=== PATIENT | male | born 1970 | race Caucasian/White ===

== ENCOUNTER 2018-06-01 19:19 | Inpatient (IN) | payer BC ==
[~2018-06-01] VITALS: Ht 183 cm; Wt 102.1 kg
--- NOTE | ~2018-06-01 | EKG ---
[place], [place] ELECTROCARDIOGRAM REPORT NAME: GARRY AIKEN UNIT #: [id number] ROOM: 426 DOCTOR: MOON DRAFT REPORT BIRTHDATE: [birth year] [facility] Test Date: 2018-06-02 Test Time: 01:16:35 Pat Name: GARRY AIKEN Department: Room: 426 Gender: M Public Works Supervisor: Nery Hussein : 1970 Requested By: MOUNA BROOKS Order Number: [id number] Reading MD: Navid Rocha MD Measurements Intervals [place] Rate: 48 P: 41 VA: 159 QRS: 80 QRSD: 100 T: 31 QT: 473 QTc: 423 Interpretive Statements Sinus bradycardia Compared to 06/01/18 No significant change Electronically Signed On 06-03-2018 19:28:16 PST by Navid Rocha MD CM:EKGRPT:ELECTROCARDIOGRAM REPORT [id number] MOUNA DE LEON DRAFT REPORT MOUNA BROOKS DO
--- NOTE | ~2018-06-01 | EKG ---
[place], [place] ELECTROCARDIOGRAM REPORT NAME: GARRY AIKEN UNIT #: [id number] ROOM: 426 DOCTOR: MOON DRAFT REPORT BIRTHDATE: [birth year] [facility] Test Date: 2018-06-01 Test Time: 19:22:11 Pat Name: GARRY AIKEN Department: Room: 426 Gender: M Numerical Control Router Operator: Nery Hussein : 1970 Requested By: MOUNA BROOKS Order Number: [id number] Reading MD: Navid Rocha MD Measurements Intervals [place] [facility] Rate: 80 P: 36 [place]: 202 QRS: 91 QRSD: 91 T: 8 QT: 376 QTc: 434 Interpretive Statements Sinus rhythm Borderline right axis deviation Electronically Signed On 06-03-2018 19:22:38 PST by Navid Rocha MD CM:EKGRPT:ELECTROCARDIOGRAM REPORT 21 21 MOUNA DE LEON DRAFT REPORT MOUNA BROOKS DO
--- NOTE | ~2018-06-01 | EKG ---
[place], [place] ELECTROCARDIOGRAM REPORT NAME: GARRY AIKEN UNIT #: [id number] ROOM: 426 DOCTOR: MOON DRAFT REPORT BIRTHDATE: [birth year] [facility] Test Date: 2018-06-01 Test Time: 22:33:54 Pat Name: GARRY AIKEN Department: Room: 426 Gender: M Director Trial: Chan Hernández : 1970 Requested By: MOUNA BROOKS Order Number: [id number] Reading MD: Navid Rocha MD Measurements Intervals [place] Rate: 55 P: 63 LA: 167 QRS: 87 QRSD: 102 T: 44 QT: 438 QTc: 419 Interpretive Statements Sinus rhythm ST elev, probable normal early repol pattern Compared to earlier ECG this date Inferior T-wave inversion and inferior ST elevation no longer present Electronically Signed On 06-03-2018 19:25:41 PST by Navid Rocha MD CM:EKGRPT:ELECTROCARDIOGRAM REPORT 32 24 MOUNA DE LEON DRAFT REPORT MOUNA BROOKS DO
[~2018-06-01 19:19] MED LIST: ANTIBIO; ATIVAN0.5 MG PO; CARDIZEM60 MG PO; MOTRIN800 MG PO; PROTONIX40 MG PO
[2018-06-01 19:21] VITALS: BP 152/92
[2018-06-01 19:31] LABS: BASO # 0.1 10*3/uL (0.0-0.1); BASO % 1.3 % (0.0-1.0); EOS # 0.2 10*3/uL (0.0-0.4); EOS % 2.6 % (1.0-4.0); HEMATOCRIT 44.3 % (42.0-52.0); HEMOGLOBIN 15.5 g/dl (14.0-18.0); LYMPH # 2.4 10*3/uL (1.3-4.4); LYMPH % 38.3 % (27.0-41.0); MEAN CORPUSCULAR HGB 30.5 pg (27.0-31.0); MONO # 0.6 10*3/uL (0.1-1.0); MONO % 8.8 % (3.0-9.0); NEUT % 48.5 % (47.0-73.0); PLATELET COUNT AUTOMATED 226 10*3/uL (130-400); RED BLOOD COUNT 5.09 10*6/uL (4.50-5.90); RED CELL DISTRI WIDTH 12.9 % (0-14.5); WHITE BLOOD COUNT 6.2 10*3/uL (4.8-10.8)
[2018-06-01 19:41] LABS: ACT PARTIAL THROMBO TIME 23.2 SECONDS (20.8-31.5)
[2018-06-01 19:47] LABS: ALBUMIN 4.4 gm/dl (3.1-4.5); ALKALINE PHOSPHATASE 68 U/L (45-117); BUN 15 mg/dl (7-24); CHLORIDE 109 mmol/L (98-107); CREATININE 1.07 mg/dL (0.70-1.30); POTASSIUM 4.2 mmol/L (3.5-5.1); SGOT/AST 47 IU/L (3-35); SGPT/ALT 94 U/L (12-78); SODIUM 142 mmol/L (136-145); TOTAL PROTEIN 7.8 gm/dL (6.4-8.2)
[2018-06-01 19:49] LABS: TROPONIN I < 0.015 ng/ml (<0.045)
[2018-06-01 20:15] VITALS: BP 145/85
[2018-06-01 20:30] VITALS: BP 141/94
[2018-06-01 20:43] VITALS: BP 139/90
--- NOTE | 2018-06-01 20:43 | NUR ---
DENIES ANY CP AT PRESENT
--- NOTE | 2018-06-01 21:00 | NUR ---
Time: A 48 year old M admitted to under services of NEGRITO RAMÍREZ DO, Pt. arrived via bed from ER. Chief complaint: CHEST PAIN. ANDREW GIRALDO
--- NOTE | 2018-06-01 21:00 | NUR ---
EDUCATED PT AND FAMILY OF HTN, ANGINA, AND POC FOR PT. WILL CONTINUE TO MONITOR PT
[2018-06-02] VITALS: BP 128/78
[2018-06-02 06:41] LABS: BASO # 0.1 10*3/uL (0.0-0.1); EOS # 0.2 10*3/uL (0.0-0.4); EOS % 4.2 % (1.0-4.0); HEMATOCRIT 43.9 % (42.0-52.0); LYMPH # 2.1 10*3/uL (1.3-4.4); LYMPH % 42.6 % (27.0-41.0); MEAN CELL VOLUME 88.2 fl (80.0-94.0); MEAN CORPUSCULAR HGB 30.1 pg (27.0-31.0); MEAN CORPUSCULAR HGB CONC 34.2 g/dl (33.0-37.0); MEAN PLATELET VOLUME 11.8 fl (9.6-12.3); MONO # 0.5 10*3/uL (0.1-1.0); NEUT # 2.1 10*3/uL (2.3-7.9); PLATELET COUNT AUTOMATED 176 10*3/uL (130-400); RED BLOOD COUNT 4.98 10*6/uL (4.50-5.90); RED CELL DISTRI WIDTH 12.9 % (0-14.5)
--- NOTE | 2018-06-02 07:14 | NUR ---
DR. BREWER MADE AWARE OF CONSULT. NO ORDERS AT THIS TIME
[2018-06-02 07:15] LABS: BUN 13 mg/dl (7-24); CHLORIDE 108 mmol/L (98-107); CREATININE 1.11 mg/dL (0.70-1.30); PHOSPHOROUS 3.7 mg/dL (2.5-4.9); POTASSIUM 4.8 mmol/L (3.5-5.1); SODIUM 143 mmol/L (136-145)
[2018-06-02 07:20] LABS: CHOLESTEROL 185 mg/dL (<200); HDL CHOLESTEROL 40 mg/dl (40-60); LDL CHOLESTEROL 122 mg/dL (9-159); TRIGLYCERIDES 116 mg/dl (<150); VLDL CHOLESTEROL 23 mg/dL (6-40)
--- NOTE | 2018-06-02 09:35 | NUR ---
INFORMED SIGNED CONSENT OBTAINED FOR CGXT WITH DR BROWN. RESTING EKG SINUS BRADYCARDIA HR 57 BP 122/80 IN SUPINE POSITION, STANDING HR 69 BP 118/82. PT COMPLETED 8:00 OF A HERNANDEZ PROTOCOL WITH PT COMPLETING 2:00 OF STAGE III AT 3.4 MPH AND A 14% GRADE. PVC COUPLETES NOTED. NON DIAGNOSTIC ST CHANGES SEEN. PT REACHED A PEAK HR OF 175 WHICH REPRESENTS 101% OF PREDICTED MAXIMUM AND A PEAK BP OF 168/74. TEST TERMINATED DUE TO FATIGUE. LAST RECOVERY HR OF 126 BP 130/80. PT IN STABLE CONDITION, AWIATING NUCLEAR IMAGES.
--- NOTE | 2018-06-02 11:19 | NUR ---
Supervisor [employer] in to talk to patient. Patient states lives at HOME with . There are SOME steps in the home. Physician: MARGOT FITZGERALD Pharmacy: [facility] health services: NONE Patient's level of ADLs: INDEPENDENT Patient has working utilities: YES DME: NONE Follow-up physician's appointment after d/c: WILL BE MADE BY HOSPITALIST NURSE DIRECTOR ON DISCHARGE Does patient want to access PORTAL?: NO Discharge plan PT LIVES AT HOME WITH HIS AND IS INDEPENDENT IN CARE. DENIES ANY HOME NEEDS ON DISCHARGE. WILL TAKE HIM HOME ON DISCHARGE. WILL CONTINUE TO FOLLOW.. MINESH HILL
[2018-06-02 11:42] VITALS: BP 124/83
[2018-06-02 16:00] VITALS: BP 125/85
--- NOTE | 2018-06-02 18:47 | NUR ---
Discharge instructions reviewed with patient/family. Patient receptive and verbalizes understanding. Follow-up care arranged. Written instructions given to patient/family. WENT OVER DISCHARGE PACKET WITH PATIENT. PATIENT AWARE OF FOLLOW UP APPOINTMENT WITH PCP. IV REMOVED, PATIENT TOLERATED WELL. HEART MONITOR REMOVED AND PLACED IN NURSES STATION. ALL BELONGINGS WITH PATIENT AT THIS TIME. PATIENT DENIES NEED FOR WHEELCHAIR. PATIENT AMBULATED OFF FLOOR WITH FAMILY AT THIS TIME. GREG RICKETTS E
== END 2018-06-02 11:19 | disposition home or self-care (01) | DRG 313 ==
LOC: ED 19:19 → 4E 19:58 → EDHOLD 19:58 → 4E 20:08
PROVIDERS: Emergency Medicine; Student in an Organized Health Care Education/Training Program; ADMIT Internal Medicine
PROC: 3E073KZ Introduction of Other Diagnostic Substance into Coronary Artery, Percutaneous Approach (ICD-10-PCS; principal; 2018-06-02)
PROC: 4A02XM4 Measurement of Cardiac Total Activity, External Approach (ICD-10-PCS; principal; 2018-06-02)
DX: R07.89 Other chest pain (principal); F17.200 Nicotine dependence, unspecified, uncomplicated; E78.2 Mixed hyperlipidemia; E83.41 Hypermagnesemia; R74.0 Nonspecific elevation of levels of transaminase and lactic acid dehydrogenase [LDH]; R00.1 Bradycardia, unspecified; I25.2 Old myocardial infarction; Z85.46 Personal history of malignant neoplasm of prostate; Z71.6 Tobacco abuse counseling

== ENCOUNTER 2021-03-07 20:04 | Emergency (ER) | payer BC ==
[~2021-03-07] VITALS: Wt 106.6 kg
[2021-03-07 23:00] LABS: BASO % 0.4 % (0.0-1.0); HEMATOCRIT 42.6 % (42.0-52.0); LYMPH # 0.9 10*3/uL (1.3-4.4); LYMPH % 16.8 % (27.0-41.0); MEAN CELL VOLUME 88.2 fl (80.0-94.0); MEAN PLATELET VOLUME 11.9 fl (9.6-12.3); MONO # 0.5 10*3/uL (0.1-1.0); MONO % 8.8 % (3.0-9.0); NEUT # 4.1 10*3/uL (2.3-7.9); NEUT % 73.1 % (47.0-73.0); PLATELET COUNT AUTOMATED 147 10*3/uL (130-400); RED BLOOD COUNT 4.83 10*6/uL (4.50-5.90); RED CELL DISTRI WIDTH 12.7 % (0-14.5); WHITE BLOOD COUNT 5.5 10*3/uL (4.8-10.8)
[2021-03-07 23:16] LABS: ALBUMIN 3.7 gm/dl (3.1-4.5); ALKALINE PHOSPHATASE 56 U/L (45-117); BUN 12 mg/dl (7-24); CHLORIDE 101 mmol/L (98-107); CREATININE 1.16 mg/dL (0.70-1.30); POTASSIUM 4.4 mmol/L (3.5-5.1); SGOT/AST 44 IU/L (3-35); SGPT/ALT 54 U/L (12-78); SODIUM 135 mmol/L (136-145)
[2021-03-08 06:28] LABS: TOTAL PROTEIN 7.3 gm/dL (6.4-8.2)
== END 2021-03-08 00:10 | disposition home or self-care (01) ==
LOC: ED 20:04
PROVIDERS: Internal Medicine
DX: U07.1 COVID-19 (principal); J12.82 Pneumonia due to coronavirus disease 2019; R79.82 Elevated C-reactive protein (CRP); F17.220 Nicotine dependence, chewing tobacco, uncomplicated

== ENCOUNTER → 2023-04-05 | Outpatient (CLI) | payer BC | END | disposition home or self-care (01) | LOC: CARD 14:51 | PROVIDERS: ATTEND Family Medicine | DX: R20.2 Paresthesia of skin (principal) ==

== ENCOUNTER → 2023-10-09 | Outpatient (CLI) | payer OTHER | LOC: RAD 08:54 | PROVIDERS: ATTEND Surgery | DX: M50.823 Other cervical disc disorders at C6-C7 level (principal); M25.512 Pain in left shoulder ==